=== PATIENT | female | born 1985 | race Caucasian/White ===

== ENCOUNTER 2020-03-31 08:33 | Emergency (ER) | payer MEDICAID ==
[~2020-03-31] VITALS: Ht 167.6 cm; Wt 61.2 kg
--- NOTE | 2020-03-31 08:45 | NUR ---
CAME IN FOR ANXIETY/PANIC ATTACK. UNABLE TO SLEEP x 3 DAYS. "IT HAS NEVER BEEN THIS BAD". PATIENT STATES SHE HAS STOPPED DRINKING HER MEDICATION A YEAR AGO. TO ER BED 11, HOOKED TO MONITOR, CHANGED TO HOSP GOWN, WARM BLANKET PROVIDED, PATIENT AAO x 4, DR LAST AT BEDSIDE. KEPT WARM SAFE AND COMFORTABLE.
[2020-03-31] MEDS ORDERED: LORAZEPAM INJ 2 MG/ML VIAL ONE (08:58)
[2020-03-31] MEDS ORDERED: Thiamine 100 MG in IV D5W 50 ML IV SCH (09:00)
[2020-03-31] MEDS ORDERED: IV NS 0.9% 1,000 ML BAG IV ONE (09:00)
[2020-03-31] MEDS ORDERED: LORAZEPAM INJ 2 MG/ML VIAL IV ONE (09:00)
[2020-03-31 09:17] LABS: BASOPHILS # (AUTO) 0.1 /CMM (0.0-0.2); BASOPHILS % (AUTO) 0.7 % (0.0-2.0); EOSINOPHILS % (AUTO) 1.4 % (0.0-6.0); HEMATOCRIT 40 % (33-45); HEMOGLOBIN 13.2 g/dL (11.5-14.8); LYMPHOCYTES # (AUTO) 3.5 /CMM (0.8-4.8); LYMPHOCYTES % (AUTO) 27.4 % (20.0-44.0); MEAN CORPUSCULAR HGB CONC 33 g/dl (31.0-36.0); MEAN CORPUSCULAR VOLUME 94 fL (82-100); MONOCYTES # (AUTO) 0.4 /CMM (0.1-1.30); MONOCYTES % (AUTO) 3.2 % (2.0-12.0); NEUTROPHILS # (AUTO) 8.5 /CMM (1.8-8.9); NEUTROPHILS % (AUTO) 67.3 % (43.0-81.0); PLATELET COUNT (AUTO) 330 /CMM (150-450); RED BLOOD CELL COUNT(AUTO) 4.24 MIL/uL (4.0-5.2); WHITE BLOOD COUNT (AUTO) 12.7 K/uL (4.3-11.0)
[2020-03-31 09:25] LABS: CALCIUM, SERUM 8.8 mg/dL (8.5-10.1); CREATININE 0.8 mg/dL (0.6-1.3); POTASSIUM 3.8 mmol/L (3.5-5.1)
[2020-03-31 09:31] LABS: ALBUMIN 4.4 g/dL (3.4-5.0); BILIRUBIN,DIRECT 0.1 mg/dL (0.0-0.2); BILIRUBIN,TOTAL 0.4 mg/dL (0.2-1.0); TOTAL PROTEIN, SERUM 7.5 g/dL (6.4-8.2)
--- NOTE | 2020-03-31 09:52 | NUR ---
PATIENT VERBALIZES SHE FEELS MUCH BETTER NOW.
[2020-03-31 09:57] LABS: THYROID STIMULATING HORMONE 0.009 uIU/mL (0.358-3.74)
--- NOTE | 2020-03-31 10:37 | NUR ---
IV removed. Catheter intact and site benign. Pressure and 4x4 applied to site. No bleeding noted.Patient discharged to home in stable condition. Written and verbal after care instructions given. Patient verbalizes understanding of instruction. Instructed not to drive
[2020-03-31 10:38] VITALS: BP 139/79
== END 2020-03-31 10:38 | disposition home or self-care (01) ==
LOC: ER 08:33
DX: F10.239 Alcohol dependence with withdrawal, unspecified (principal); F41.9 Anxiety disorder, unspecified; Y90.3 Blood alcohol level of 60-79 mg/100 ml; Z88.8 Allergy status to other drugs, medicaments and biological substances
CPT/HCPCS: 36415; 80048; 80076; 80307; 84443; 85025; 96361; 96365; 96375; 99284; J2060; J3411 ×2; J7030; J7060 ×2; G0480

== ENCOUNTER 2020-04-16 07:47 | Emergency (ER) | payer MEDICAID ==
[~2020-04-16] VITALS: Ht 152.4 cm; Wt 54.4 kg
--- NOTE | 2020-04-16 07:56 | NUR ---
PT [facility] HOME. FEELING "SICK" ANXIOUS PREVENTION COORDINATOR. STATES BEEN DRINKING VODKA YESTERDAY. DRANK 1 BEER 1 HOUR PREVENTION COORDINATOR BUT STILL NOT FEELING WELL. PT PLACED ON MONITOR. AWAITING MD BROWN.
--- NOTE | 2020-04-16 08:00 | NUR ---
DR TRACY AT BEDSIDE FOR EVAL.
[2020-04-16] MEDS ORDERED: LORAZEPAM 0.5 MG TABLET ONE (08:02)
[2020-04-16] MEDS: LORAZEPAM 0.5 MG TABLET PO ONE (08:04)
[2020-04-16] MEDS ORDERED: FAMOTIDINE (20 MG) 20 MG TABLET ONE (08:56)
[2020-04-16] MEDS ORDERED: LORAZEPAM 1 MG TABLET ONE (08:56)
[2020-04-16] MEDS ORDERED: ONDANSETRON 4 MG TAB.RAPDIS ONE (08:56)
[2020-04-16] MEDS: LORAZEPAM 1 MG TABLET PO ONE (08:58)
[2020-04-16] MEDS: FAMOTIDINE (20 MG) 20 MG TABLET PO ONE (09:03)
[2020-04-16] MEDS: ONDANSETRON 4 MG TAB.RAPDIS SL ONE (09:04)
--- NOTE | 2020-04-16 09:20 | NUR ---
BALDO COLINW CALLED FOR EVAL
--- NOTE | 2020-04-16 10:08 | NUR ---
MEDICALLY CLEARED. WAS PROVIDED W/ REFFERAL FOR ADDICTION TREATMENT. Patient discharged to home in stable condition. Written and verbal after care instructions given. Patient verbalizes understanding of instruction.
[2020-04-16 10:11] VITALS: BP 125/86
--- NOTE | 2020-04-16 12:50 | NUR ---
9:30AM Rn Infusion met with the patient at bedside. Patient is a 34 year-old woman who presented to the ED for alcohol withdrawal. Patient was alert and oriented x4. Per patient, she has been living in [place] since 2007, originally from [place]. Patient states that she lost her job due to COVID-19 and is unable to receive government aid due to her immigration status. Per patient, she is able to support herself financially by asking friends and her mother to help. Patient reports that she has been drinking one bottle of Vodka, 1/2 bottle of wine, and beer for the past three days. Per patient, was not feeling well last night and this morning went to a gas station to buy more beer in hopes to feel better. Per patient, she did not feel better, ambulance arrived at the scene but as she could not come to the hospital because she had her dog with her. Patient went home and bystander called ambulance for her. Patient reports marijuana use to go to sleep or edibles instead of xanax. Per patient, has a dispensary card. Patient reports ADD, Insomnia, and mood disorder diagnosis. Per patient, she cannot pay $600 for a psychiatrist evaluation. Patient was given the following resources Substance Abuse resources provided included: [facility] Substance Abuse Self-Helpline ([facility]) ; [facility] [address] [facility]. [place] [id number] ; [facility] [address] [facility] [address] ; [facility] [address] [facility] [address] ; [facility] [address] [facility] [address] ; [facility] [address] [facility] [address] ; [facility] [address] [facility] [address] ; [facility] Substance Abuse Helpline([facility] ; [facility] ; [facility]; [facility] [place]; [facility] Leandro Wright; [facility]; [facility]; [facility]; [facility], [facility]. Stacy sEpana; Alcoholics Anonymous -[facility]; [facility] ; Marijuana Anonymous [facility]; Narcotics Anonymous www.na.org. Mental Health resources provided: [facility] [address] [place] [address] ; [facility], [facility] [address] [facility] [address], [place] [address] ; [address]n [facility] [address] [address] ; [facility] [place] [address]
== END 2020-04-16 10:11 | disposition home or self-care (01) ==
LOC: ER 07:51
DX: F10.10 Alcohol abuse, uncomplicated (principal); F41.9 Anxiety disorder, unspecified; Z88.8 Allergy status to other drugs, medicaments and biological substances; Y90.9 Presence of alcohol in blood, level not specified
CPT/HCPCS: 99284; Q0162

== ENCOUNTER 2021-01-19 16:22 | Emergency (ER) | payer MEDICAID ==
[~2021-01-19] VITALS: Ht 167.6 cm; Wt 63.5 kg
[2021-01-19 17:07] VITALS: BP 127/82
== END 2021-01-19 18:33 | disposition home or self-care (01) ==
LOC: ER 16:25
DX: F41.0 Panic disorder [episodic paroxysmal anxiety] (principal); F32.9 Major depressive disorder, single episode, unspecified; Z88.8 Allergy status to other drugs, medicaments and biological substances